=== PATIENT | male | born 1975 | race Caucasian/White ===

== ENCOUNTER 2024-02-20 21:36 | Emergency (ER) | payer SELFPAY ==
[2024-02-20 21:38] VITALS: BP 177/112; PULSE 77; RESP 18; TEMP 36.7; O2SAT 98; BMI 26.7
--- NOTE | 2024-02-20 23:07 | EDS_ITS ---
HPI History of Present Illness Chief Complaint: General Illness Informant: patient Narrative Narrative: Patient is a 48-year-old male who is states he has no significant past medical history and does not take any daily medication. He reports a few weeks ago he had to help with emergent surgery on his dog. He states that he did not wear gloves and had blood and pus on his hands. He states since that time he has had intermittent boils and believes that this is staph in nature as he has had in the past. He reports that he has been on doxycycline without any symptom improvement. He now notes pain mainly in his left elbow and with concern for potential septic arthritis he comes in for evaluation [facility] Medical History no medical history Home Medications ?Medication ?Instructions ?Recorded ?Last Taken ?Type doxycycline hyclate 100 mg capsule 100 mg PO Q12.TCU 02/20/24 Unknown History vancomycin 250 mg capsule 250 mg PO Q6H 7 days #28 caps 02/20/24 Unknown Rx Allergy/AdvReac Type Severity Reaction Status Date / Time No Known Allergies Allergy Verified 02/20/24 21:40 Social History Smoking Status: Never smoker [facility] ED Constitutional Constitutional ED: Denies chills or fever(s) ENT ENT ED: Denies sore throat Cardiovascular Cardiovascular: Denies chest pain Respiratory/Chest Respiratory/Chest: Denies cough or dyspnea Gastrointestinal Gastrointestinal: Denies abdominal pain, diarrhea, nausea or vomiting Genitourinary Genitourinary ED: Denies dysuria Musculoskeletal Musculoskeletal: Reports arthralgias and myalgias Integumentary Reports abscess; Denies rash Neurologic Neurologic: Denies headache(s) or paresthesias Hematologic/Lymphatic Hematologic/Lymphatic: Denies easy bleeding or easy bruising EXAM Physical Exam Const Vital Signs: 02/20/24 21:38 02/20/24 22:06 02/20/24 23:47 Temperature 98.0 F 98.2 F Temperature Source Temporal Pulse Rate 77 65 Respiratory Rate 18 16 Respiratory Effort Normal Respiratory Pattern Normal Blood Pressure 177/112 H 125/70 H Blood Pressure Mean 133 88 Pulse Ox 98 99 Oxygen Delivery Method Room Air Positive well nourished and well developed General Appearance ED: well developed HEENT HEENT Narrative: Normocephalic atraumatic Eyes PERRL and EOMs intact bilaterally General Eye ED: Negative for scleral icterus Neck supple Neck Narrative: No nuchal rigidity or meningeal signs noted Resp normal respiratory effort and clear to auscultation bilaterally Cardio regular rate and regular rhythm Extremity Extremity Narrative: Left upper extremity is neurovascularly intact; AIN/PIN are intact and normal. Active range of motion is slightly decreased secondary to pain. There is faint asymmetric erythema and warmth to the left elbow compared to right. However no bony deformity or joint effusion noted. No lymphangitic streaking. Remainder the exam is normal. Neuro oriented x3, CN's II-XII intact bilaterally and no sensory deficits noted Sensorium / Orientation: alert Psych mental status grossly normal Skin Skin Narrative: Faint erythema and warmth to left elbow as documented above without any obvious abscess formation. No rashes or lesions noted either MDM MDM MDM Narrative Medical decision making narrative: Patient arrived to the ER hypertensive but otherwise with stable vitals. He reported exposure to animals fluids and then development of myalgias and arthralgias despite taking antibiotics. Differential diagnosis is for cellulit is versus abscess versus septic joint versus serum sickness. I discussed with patient obtaining laboratory studies as well as an x-ray based on his prolonged use of antibiotics and concern for septic joint. The fact that there is no obvious fluid collection goes against a bursitis and as his range of motion is decreased but not locked my concern for septic joint is low as well. The patient states that he does not want testing performed at this time but would prefer a different antibiotic and states he has done well with oxacillin in the past. Therefore he was given 1 g as an IM injection at this time. The medication is not available orally so I will place him on vancomycin for improved staph coverage. The patient's vitals are stabilized on reevaluation concern for septic arthritis is low and as he does not want further evaluation with labs and imaging he will be discharged home at this time History & Record Review Discussion w/independent historian: Patient Discharge Plan Triage Chief Complaint: General Illness ED Provider: Archie Gonzalez Dx/Rx/DC Orders Clinical Impression: Staphylococcal arthritis of elbow Instructions: Staph MRSA Prescriptions: New vancomycin 250 mg capsule 250 mg PO Q6H 7 Days Qty: 28 0RF No Action doxycycline hyclate 100 mg capsule 100 mg PO Q12.TCU Primary Care Provider: Care Physician,No Primary Referrals: Latrell Cook MD [Med Staff - Active Staff] - Care Physician,No Primary [Primary Care Provider] - Activity Restrictions/Additional Instructions: Please stop your doxycycline and begin taking the oral vancomycin for improved infection control. If you develop worsening symptoms or have any further concerns please return to the ER for repeat evaluation. Print Language: Estonian Disposition Disposition: Home, Self Care Discharge Date/Time: 02/20/24 23:57
[2024-02-20] MEDS: OXACILLIN SODIUM 2 GM 1 GM IM (23:42)
[2024-02-20 23:47] VITALS: BP 125/70; PULSE 65; RESP 16; TEMP 36.8; O2SAT 99
== END 2024-02-20 23:57 | disposition home or self-care (01) ==
PROVIDERS: Emergency Provider Emergency Medicine; Visit Provider Emergency Medicine
DX: M00.022 Staphylococcal arthritis, left elbow (principal); B95.8 Unspecified staphylococcus as the cause of diseases classified elsewhere; X58.XXXA Exposure to other specified factors, initial encounter; Y93.89 Activity, other specified
CPT/HCPCS: 96372; 99283; J3490